=== PATIENT | female | born 1960 | race Native Hawaiian/Other Pacific Islander ===

== ENCOUNTER 2017-01-02 14:13 | Outpatient (CLI) | payer OTHER ==
[2017-01-02 14:45] LABS: PLATELET COUNT 211 K/uL (152-353)
== END 2017-01-02 15:10 | disposition home or self-care (01) ==
LOC: LABW 14:13
DX: D89.0 Polyclonal hypergammaglobulinemia (principal)
CPT/HCPCS: 36415; 85027

== ENCOUNTER 2020-10-05 11:03 | Outpatient (CLI) | payer OTHER | END 2020-10-05 21:31 | disposition home or self-care (01) | LOC: INF 11:03 | PROVIDERS: ATTEND Internal Medicine | DX: Z23 Encounter for immunization (principal) | CPT/HCPCS: 96372 ==

== ENCOUNTER 2020-11-02 09:02 | Outpatient (CLI) | payer OTHER | END 2020-11-02 19:45 | disposition home or self-care (01) | LOC: INF 09:02 | PROVIDERS: ATTEND Internal Medicine | DX: Z23 Encounter for immunization (principal) | CPT/HCPCS: 96372 ==